=== PATIENT | female | born 1975 | race Caucasian/White ===

== ENCOUNTER 2021-01-30 08:29 | Emergency (ER) | payer BC, OTHER ==
[~2021-01-30] VITALS: Ht 165.1 cm; Wt 95.3 kg
[2021-01-30 08:48] LABS: URINE BILIRUBIN NEGATIVE (Negative); URINE BLOOD 3+ (Negative); URINE CLARITY CLOUDY; URINE COLOR YELLOW; URINE GLUCOSE-RANDOM* NEGATIVE (Negative); URINE KETONES NEGATIVE (Negative); URINE LEUKOCYTES-REFLEX NEGATIVE (Negative); URINE NITRITE-REFLEX NEGATIVE (Negative); URINE PROTEIN (DIPSTICK) TRACE (Negative); URINE SPECIFIC GRAVITY >= 1.030 (1.005-1.035); URINE UROBILINOGEN 0.2 E.U./dl (0.2-1.0)
[2021-01-30 09:16] LABS: CASTS None Seen /LPF (None Seen); SQUAMOUS >10 Many /LPF (0-3); URINE RBC >20 Many /HPF (NONE SEEN)
[2021-01-30 09:17] LABS: CRYSTALS None Seen /LPF (None Seen); URINE WBC-REFLEX 6-15 Few /HPF (0-5)
[2021-01-30 09:23] LABS: ABSOLUTE NEUTROPHILS 5.3 thou/uL (1.4-8.2); BASOPHILS 0.6 % (0.0-2.0); EOSINOPHILS 4.9 % (0.0-3.0); HEMATOCRIT 40.5 % (37.0-47.0); HEMOGLOBIN 13.1 gm/dL (12.0-15.0); LYMPHOCYTES 6.3 % (24.0-44.0); MCH 30.4 pg (26.0-34.0); MCHC 32.3 g/dL (28.0-37.0); MCV 94.2 fL (80.0-100.0); MONOCYTES 7.7 % (1.0-8.0); PLATELET COUNT 214 thou/uL (150-400); POLYS 80.5 % (36.0-66.0); RDW 15.9 % (10.5-14.5); WBC 6.6 thou/uL (4.0-11.0)
[2021-01-30 09:25] LABS: CALCIUM 8.7 mg/dL (8.5-10.1); POTASSIUM 4.1 mmol/L (3.5-5.1)
[2021-01-30 09:35] LABS: ALBUMIN 3.5 g/dL (3.4-5.0); TOTAL BILIRUBIN 0.3 mg/dL (0.2-1.0); TOTAL PROTEIN 7.3 g/dL (6.4-8.2)
[2021-01-30 10:07] VITALS: BP 182/93
--- NOTE | 2021-01-30 12:07 | EKG ---
[address] [address] ELECTROCARDIOGRAM REPORT Name: CHANTALE JACK [facility] [id number] Admission: 01/30/21 Attend Phys: Discharge: Date of : 75 Report #: [id number] [facility] ED Test Date: 2021-01-30 Test Time: 08:52:37 Pat Name: CHANTALE JACK Department: Room: Gender: F Certified Addiction Counselor: REID : [id number] Requested By: Rajeev Martinez Order Number: [id number] MD: Gustavo Strickland Measurements Intervals [place] Rate: 75 P: 5 MD: 166 QRS: 63 QRSD: 80 T: 22 QT: 381 QTc: 426 Interpretive Statements Sinus rhythm No previous ECG available for comparison Electronically Signed On 01-30-2021 12:07:15 CDT by Gustavo Strickland [email or web address] <ELECTRONICALLY SIGNED> By: Gustavo Strickland MD, [facility] 01/30/21 [id number] Gustavo Strickland MD, FACC /EPI
== END 2021-01-30 10:10 | disposition home or self-care (01) ==
LOC: ER 08:29
PROVIDERS: Emergency Medicine
DX: R10.32 Left lower quadrant pain (principal); I10 Essential (primary) hypertension; E03.9 Hypothyroidism, unspecified; M06.9 Rheumatoid arthritis, unspecified